=== PATIENT | female | born 1990 | race Caucasian/White ===

== ENCOUNTER 2017-12-07 05:30 | Emergency (ER) | payer OTHER ==
[~2017-12-07] VITALS: Ht 162.6 cm; Wt 72.5 kg
[2017-12-07] MEDS ORDERED: IV NORMAL SALINE 1,000ML 1,000 ML IV SCH (06:17)
[2017-12-07] MEDS ORDERED: LIDO:MAALOX 1:1 20 ML SINGLE DOSE PO ONE (06:30)
[2017-12-07] MEDS ORDERED: KETOROLAC 30 MG/ML VIAL. IV ONE (06:30)
[2017-12-07] MEDS ORDERED: FAMOTIDINE 20 MG/2 ML VIAL IVP ONE (06:30)
[2017-12-07] MEDS ORDERED: ONDANSETRON PF 4 MG/2 ML VIAL. IV ONE (06:30)
[2017-12-07] MEDS ORDERED: IOHEXOL 300 MG/ML 75 ML VIAL. IV ONE (06:30)
[2017-12-07 06:31] LABS: BASO % 0 % (0-3); EOS % 1 % (0-3); HEMATOCRIT 43.5 % (36.0-47.0); HEMOGLOBIN 14.8 g/dL (12.0-15.5); LYMPH # 0.8 x10^3/uL (1.0-4.8); LYMPH % 17 % (24-48); MEAN CORPUSCULAR HEMOGLOBIN 30 pg (25-35); MEAN CORPUSCULAR HGB CONC 34 g/dL (31-37); MEAN CORPUSCULAR VOLUME 87 fL (79-100); MONO # 0.5 x10^3/uL (0.0-1.1); MONO % 10 % (0-9); NEUT # 3.7 x10^3uL (1.8-7.7); NEUT % 73 % (31-73); PLATELET COUNT 186 x10^3/uL (140-400); RED BLOOD COUNT 4.98 x10^6/uL (3.50-5.40); RED CELL DISTRIBUTION WIDTH 13.1 % (11.5-14.5); WHITE BLOOD COUNT 5.1 x10^3/uL (4.0-11.0)
[2017-12-07 06:37] LABS: ALBUMIN 3.8 g/dL (3.4-5.0); ALBUMIN/GLOBULIN RATIO 1.1 (1.0-1.7); CALCIUM 8.4 mg/dL (8.5-10.1); CREATININE 0.7 mg/dL (0.6-1.0); GFR 98.9; POTASSIUM 3.7 mmol/L (3.5-5.1); TOTAL BILIRUBIN 0.5 mg/dL (0.2-1.0); TOTAL PROTEIN 7.2 g/dL (6.4-8.2)
[2017-12-07] MEDS ORDERED: CONTRAST GIVEN MC PRN (07:00)
--- NOTE | 2017-12-07 07:25 | PHYS DOC ---
General Chief Complaint: ABDOMINAL PAIN Stated Complaint: ABDOMINAL PAIN Time Seen by MD: 06:08 Source: patient Exam Limitations: no limitations Problems: History of Present Illness Initial Comments 27-year-old female comes the ED complaining of abdominal pain. Patient states that beginning last night she's had generalized nonfocal abdominal discomfort described as sharp and crampy and intermittent. No exacerbating or relieving factors known, patient has had decreased appetite her last bowel movement was day before yesterday last by mouth intake was 1800 last night. She's had some belching and GERD symptoms, no abdominal bloating no nausea vomiting or stool changes. No travel or bad food exposure no fever chills sweats or myalgias and no other related symptoms. Timing/Duration: 24 hours Severity: severe Modifying Factors: improves with other Associated Symptoms: other Allergies: Coded Allergies: No Known Drug Allergies (Unverified , 12/07/17) Past Medical History Medical History: other (ovarian cyst) Surgical History: other ( section) Social History Smoker: non-smoker Alcohol: occasionally Drugs: none Review of Systems Constitutional: denies chills, denies diaphoresis, denies fever, denies malaise Respiratory: denies cough, denies shortness of breath Cardiovascular: denies chest pain, denies palpitations Gastrointestinal: see HPI Genitourinary: denies dysuria, denies frequency, denies hematuria Musculoskeletal: denies back pain, denies joint swelling, denies neck pain Psychiatric/Neurological: denies headache, denies numbness, denies paresthesia Physical Exam General Appearance: WD/WN, no apparent distress Ear, Nose, Throat: hearing grossly normal, normal ENT inspection Neck: non-tender, supple Respiratory: normal breath sounds, no respiratory distress Cardiovascular: normal peripheral pulses, regular rate, rhythm Gastrointestinal: normal bowel sounds, soft (generalized abdominal tenderness including right lower quadrant tenderness no rebound guarding or masses.) Back: no CVA tenderness, no vertebral tenderness Extremities: non-tender, normal inspection Neurologic/Psychiatric: erp developer II-XII nml as tested, no motor/sensory deficits, alert, oriented x 3 Orders, Labs, Meds Reassuring labs and urine studies. PATIENT: SIXTO ALVARENGA ACCOUNT: [id number] : 1990 LOCATION: ER AGE: 27 SEX: F EXAM STATUS: REG ER ORD. PHYSICIAN: KELLEN WEATHERS DO REASON: abdominal pain PROCEDURE: CT ABD PELV W/ IV CONTRST ONLY CT abdomen and pelvis with contrast TECHNIQUE: Helical CT imaging of the abdomen and pelvis was acquired with 75 mL Omnipaque 300 intravenous contrast. HISTORY: Severe abdominal pain. Abdomen findings: Subcentimeter left renal upper pole medullary hypodensity too small to characterize due to volume averaging, statistically most likely a cyst. Right kidney, adrenal glands, liver, gallbladder and spleen are unremarkable. Moderate volume of stool. The appendix is negative medial and inferior the cecum at the right lower quadrant. No obstructive or inflammatory changes of the GI tract. No abdominal fluid or adenopathy. Lung bases and bones are unremarkable. Pelvis findings: 3 cm left adnexal round hypodense lesion internal density of 6 units consistent with fluid. Retroverted uterus. Right ovary, bladder, rectum and bones are unremarkable. No fluid or adenopathy. IMPRESSION: 1. 3 cm round left ovarian density lesion likely a dominant follicle or follicular cyst. Based on the level of clinical suspicion of the patient's symptoms relative to this finding, further evaluation by pelvic sonography may be of benefit. 2. The appendix is negative. Exposure: One or more of the following individualized dose reduction techniques were utilized for this examination: 1. Automated exposure control 2. Adjustment of the mA and/or kV according to patient size 3. Use of iterative reconstruction technique Electronically signed by: Maxwell Shrestha MD (12/07/2017 7:33 AM) [id number] DICTATED AND SIGNED BY: MAXWELL SHRESTHA MD DATE: 12/07/17720 CC: PCP,UNKNOWN; KELLEN WEATHERS DO ~ PATIENT: SIXTO ALVARENGA ACCOUNT: [id number] : 1990 LOCATION: ER AGE: 27 SEX: F EXAM STATUS: REG ER ORD. PHYSICIAN: KELLEN WEATHERS DO REASON: PELVIC PAIN, ABNORMAL CT PROCEDURE: TRANSVAGINAL TRANSVAGINAL Clinical Indication: PELVIC PAIN , ABNORMAL LT OVARY ON CT Comparison: CT abdomen and pelvis with contrast, earlier same day. TECHNIQUE: Real-time ultrasound imaging of the pelvis using transvaginal window is performed. Findings: Uterus measures 8.7 x 5.6 x 4.6 cm. Uterus is retroverted. No focal abnormality. The endometrial stripe is normal measuring 8 mm. The right ovary is normal. The left ovary contains a dominant functional cyst measuring 2.4 x 2.3 x 2.1 cm. This is a normal finding. There is normal blood flow in the ovaries. No pelvic free fluid. No evidence of adnexal mass. IMPRESSION: Normal blood flow in the ovaries. Electronically signed by: Maury Ha MD (12/07/2017 8:56 AM) [id number] DICTATED AND SIGNED BY: MAURY HA MD DATE: 12/07/17 0851 CC: PCP,UNKNOWN; KELLEN WEATHERS DO ~ Departure Time of Disposition: 09:14 Disposition: HOME, SELF-CARE Diagnosis: abdominal pain, constipation, ovarian cyst Condition: GOOD Patient Instructions: Abdominal Pain (Nonspecific), Ovarian Cyst, [id number] Additional Instructions: Diet and activity as tolerated. Increase fluid intake to at least 8 glasses of water daily. [id number] Tylenol, Pepto-Bismol, and Mercedez-Nipomo as needed. Prescription: Lactulose, dicyclomine Follow-up with your qual research manager in 1-2 weeks. Follow-up with your PCP and return to the ED as needed. KELLEN WEATHERS DO Dec 07, 2017 07:25
--- NOTE | 2017-12-07 07:36 | RAD ---
CT abdomen and pelvis with contrast TECHNIQUE: Helical CT imaging of the abdomen and pelvis was acquired with 75 mL Omnipaque 300 intravenous contrast. HISTORY: Severe abdominal pain. Abdomen findings: Subcentimeter left renal upper pole medullary hypodensity too small to characterize due to volume averaging, statistically most likely a cyst. Right kidney, adrenal glands, liver, gallbladder and spleen are unremarkable. Moderate volume of stool. The appendix is negative medial and inferior the cecum at the right lower quadrant. No obstructive or inflammatory changes of the GI tract. No abdominal fluid or adenopathy. Lung bases and bones are unremarkable. Pelvis findings: 3 cm left adnexal round hypodense lesion internal density of 6 units consistent with fluid. Retroverted uterus. Right ovary, bladder, rectum and bones are unremarkable. No fluid or adenopathy. IMPRESSION: 1. 3 cm round left ovarian density lesion likely a dominant follicle or follicular cyst. Based on the level of clinical suspicion of the patient's symptoms relative to this finding, further evaluation by pelvic sonography may be of benefit. 2. The appendix is negative. Exposure: One or more of the following individualized dose reduction techniques were utilized for this examination: 1. Automated exposure control 2. Adjustment of the mA and/or kV according to patient size 3. Use of iterative reconstruction technique Electronically signed by: Gus Shrestha MD (12/07/2017 7:33 AM) [id number]
[2017-12-07 07:50] LABS: COLOR,URINE YELLOW
[2017-12-07 07:51] LABS: BILIRUBIN,URINE NEG (NEG); CLARITY,URINE CLEAR; GLUCOSE,URINE NEG (NEG); NITRITE,URINE NEG (NEG); UROBILINOGEN,URINE 0.2 mg/dL (0.2 mg/dL)
--- NOTE | 2017-12-07 08:58 | RAD ---
TRANSVAGINAL Clinical Indication: PELVIC PAIN , ABNORMAL LT OVARY ON CT Comparison: CT abdomen and pelvis with contrast, earlier same day. TECHNIQUE: Real-time ultrasound imaging of the pelvis using transvaginal window is performed. Findings: Uterus measures 8.7 x 5.6 x 4.6 cm. Uterus is retroverted. No focal abnormality. The endometrial stripe is normal measuring 8 mm. The right ovary is normal. The left ovary contains a dominant functional cyst measuring 2.4 x 2.3 x 2.1 cm. This is a normal finding. There is normal blood flow in the ovaries. No pelvic free fluid. No evidence of adnexal mass. IMPRESSION: Normal blood flow in the ovaries. Electronically signed by: Maury Ha MD (12/07/2017 8:56 AM) [id number]
[2017-12-07] MEDS ORDERED: LACT10SO PO (09:13)
[2017-12-07] MEDS ORDERED: DICY20TA3 PO (09:13)
[2017-12-07 09:34] VITALS: BP 109/60
== END 2017-12-07 09:36 | disposition home or self-care (01) ==
LOC: ER 05:30
DX: N83.202 Unspecified ovarian cyst, left side (principal); K59.00 Constipation, unspecified
CPT/HCPCS: 36415; 74177; 76830; 80053; 81003; 81025; 83605; 83690; 85025; 96361; 96374; 96375; 99285; J1885; J2405; J3010; Q9967; S0028; J7030